=== PATIENT | male | born 1945 | race Caucasian/White ===

== ENCOUNTER 2022-10-21 11:15 | Inpatient (IN) | payer BC, OTHER ==
[2022-10-21] MEDS ORDERED: Fentanyl 100 MCG/2 ML VIAL ONE (11:49)
[2022-10-21 13:08] LABS: #Eosinphils 0.2 thou/uL (0.0-0.7); #Monocytes 1.4 thou/uL (0.11-0.59); #Neutrophils 9.9 thou/uL (1.40-6.50); %Basophils 0.2 % (0.0-1.0); %Eosinophils 1.3 % (0.0-10.0); %Lymphocytes 7.7 % (21.0-51.0); %Monocytes 11.1 % (0.0-10.0); %Neutrophils 79.7 % (42.0-75.0); Hemoglobin 14.6 g/dL (14.0-18.0); Mean Corpuscular HGB CONC 32.1 g/dL (32.0-36.0); Mean Corpuscular Hemoglobin 28.7 pg (27.0-31.0); Mean Corpuscular Volume 89.6 fl (78.0-98.0); Mean Platelet Volume 6.7 fL (7.4-10.4); Platelet Count 429 10x3/uL (130-400); RBC Distribution Width 16.7 % (11.5-14.5); Red Blood Cell (RBC) Count 5.07 mill/uL (4.70-6.10); White Blood Cell (WBC) Count 12.5 10x3/uL (4.8-10.8)
[2022-10-21] MEDS ORDERED: Magnevist 469MG/ML 20 ML VIAL ONE ×2 (13:16)
[2022-10-21 13:20] LABS: INR-International Normal Ratio 1.3; Prothrombin Time 17.1 sec (12.0-14.7)
[2022-10-21] MEDS ORDERED: ALPRAZolam 0.25 MG TAB ONE (13:25)
[2022-10-21] MEDS ORDERED: metroNIDAZOLE 500 MG/100 ML BAG ONE (13:25)
[2022-10-21 13:27] LABS: ALT (SGPT) 61 U/L (8-55); AST (SGOT) 92 U/L (5-34); Albumin 2.9 g/dL (3.4-4.8); Alkaline Phosphatase 101 U/L (40-110); Anion Gap 16 mmol/L (10-20); BUN (Urea Nitrogen) 32 mg/dL (8.4-25.7); Bilirubin, Total 1.3 mg/dL (0.2-1.2); CRP (Inflammatory) 31.39 mg/dL (= or < 0.5); Calc. Creatinine Clearance 0 mL/min (70-130); Calcium 8.7 mg/dL (7.8-10.44); Carbon Dioxide 25 mmol/L (23-31); Chloride 95 mmol/L (98-107); Estimated GFR 57; Globulin 4.2 g/dL (2.4-3.5); Glucose 103 mg/dL (83-110); Potassium 4.3 mmol/L (3.5-5.1); Protein, Total 7.1 g/dL (5.8-8.1); Sodium 132 mmol/L (136-145)
[2022-10-21] MEDS ORDERED: ALPRAZolam 1 MG TAB PO SCH (13:30)
[2022-10-21] MEDS ORDERED: Vancomycin 1.5 GRAM/300 ML BAG 1.5 GM in Premix Bag 1 BAG IVPB SCH (16:00)
[2022-10-21] MEDS ORDERED: Cefepime 2 GM VIAL ONE (16:08)
[2022-10-21 16:21] LABS: Bacteria/HPF None Seen HPF (None Seen); Bilirubin Negative (Negative); Blood, Urine 1+ (Negative); Clarity Clear (Clear); Glucose, Urine (Dipstick) Greater than 1000 mg/dL (Negative); Ketone, Urine Negative (Negative); Leukocyte Negative Leu/uL (Negative); Nitrite Negative (Negative); Protein, Urine (Dipstick) 10 mg/dL (Neg-Trace); Specific Gravity, Urine 1.012 (1.002-1.036); Squamous Epithelial None Seen HPF (0-3); Urobilinogen Normal mg/dL (Less than 2); WBC/HPF 0-3 HPF (0-3)
[2022-10-21] MEDS ORDERED: Senokot S 8.6-50 MG TAB PO PRN (19:07)
[2022-10-21] MEDS ORDERED: HYDROcodone/Acetaminophen 5/325 mg Tablet PO PRN (19:24)
[2022-10-21] MEDS ORDERED: Milk Of Magnesia 30 ML UDCUP PO SCH (19:30)
[2022-10-21] MEDS: tiZANidine HCl 4 MG TAB PO SCH (22:01)
[2022-10-21] MEDS: Atorvastatin Calcium 40 MG TAB PO SCH (22:01)
[2022-10-21] MEDS: Senokot S 8.6-50 MG TAB PO SCH (22:01)
[2022-10-21] MEDS: HYDROcodone/Acetaminophen 5/325 mg Tablet PO SCH (22:02)
[2022-10-21 22:48] VITALS: BMI 27.8
[2022-10-22 01:19] LABS: HIV (1/2) Antibody/Antigen Non-Reactive (NonReactive); HIV 1/2 INDEX 0.08 S/CO (<1.00); Hep C IgG Ab Non-Reactive (NonReactive)
[2022-10-22 01:31] LABS: Hep C Index 0.12 S/CO (0-0.79)
[2022-10-22] MEDS: HYDROcodone/Acetaminophen 5/325 mg Tablet PO SCH ×4 (02:14→20:44)
[2022-10-22] MEDS: HYDROcodone/Acetaminophen 5/325 mg Tablet PO PRN (05:48)
[2022-10-22 06:14] LABS: Hemoglobin 13.3 g/dL (14.0-18.0); Mean Corpuscular HGB CONC 31.2 g/dL (32.0-36.0); Mean Corpuscular Hemoglobin 28.1 pg (27.0-31.0); Mean Platelet Volume 6.9 fL (7.4-10.4); Platelet Count 418 10x3/uL (130-400); RBC Distribution Width 16.7 % (11.5-14.5); Red Blood Cell (RBC) Count 4.72 mill/uL (4.70-6.10); White Blood Cell (WBC) Count 12.7 10x3/uL (4.8-10.8)
[2022-10-22 06:35] LABS: Band 8 % (5-11); Eosinophils 2 % (0-10); Lymphocytes 7 % (21-51); MDiff Complete? YES; Monocytes 15 % (0-10); Neutrophil 68 % (42-75); Target Cells SLIGHT = 2-5 cells (100X) (0-1/hpf)
[2022-10-22 06:37] LABS: Anion Gap 14 mmol/L (10-20); BUN (Urea Nitrogen) 28 mg/dL (8.4-25.7); Calc. Creatinine Clearance 61 mL/min (70-130); Calcium 8.9 mg/dL (7.8-10.44); Carbon Dioxide 28 mmol/L (23-31); Chloride 98 mmol/L (98-107); Estimated GFR 59; Glucose 100 mg/dL (83-110); Potassium 4.4 mmol/L (3.5-5.1); Sodium 136 mmol/L (136-145)
[2022-10-22] MEDS ORDERED: Carvedilol 3.125 MG TAB PO SCH (08:00)
[2022-10-22] MEDS: Carvedilol 3.125 MG TAB PO SCH ×2 (08:49→16:46)
[2022-10-22] MEDS ORDERED: Milk Of Magnesia 30 ML UDCUP PO SCH (09:00)
[2022-10-22] MEDS ORDERED: FLU VACC QS2022-23(65YR UP)/PF 240 MCG/0.7 ML SYRINGE IM ONE (09:00)
[2022-10-22] MEDS: Potassium Chloride 20 MEQ TAB PO SCH (09:02)
[2022-10-22] MEDS: Torsemide 20 MG TAB PO SCH (09:03)
[2022-10-22] MEDS: Senokot S 8.6-50 MG TAB PO SCH ×2 (09:03→20:43)
[2022-10-22] MEDS: Vancomycin 1.5 GRAM/300 ML BAG 1.5 GM in Premix Bag 1 BAG IVPB SCH (09:05)
[2022-10-22] MEDS: Morphine 4 MG/ML VIAL SLOW IVP PRN (11:12)
[2022-10-22] MEDS: tiZANidine HCl 4 MG TAB PO SCH (20:43)
[2022-10-22] MEDS: Atorvastatin Calcium 40 MG TAB PO SCH (20:44)
[2022-10-23] MEDS: HYDROcodone/Acetaminophen 5/325 mg Tablet PO SCH ×2 (02:15→08:06)
[2022-10-23] MEDS: HYDROcodone/Acetaminophen 5/325 mg Tablet PO PRN (05:14)
[2022-10-23] MEDS ORDERED: Polyethylene Glycol 3350 17 GM Packet PO PRN (05:53)
[2022-10-23] MEDS: Carvedilol 3.125 MG TAB PO SCH ×2 (08:38→16:57)
[2022-10-23] MEDS: Empagliflozin 10 MG TAB PO SCH (08:42)
[2022-10-23] MEDS: Potassium Chloride 20 MEQ TAB PO SCH (08:42)
[2022-10-23] MEDS: Senokot S 8.6-50 MG TAB PO SCH ×2 (08:42→20:24)
[2022-10-23] MEDS: Clopidogrel Bisulfate 75 MG TAB PO SCH (08:42)
[2022-10-23] MEDS: Torsemide 20 MG TAB PO SCH (08:42)
[2022-10-23] MEDS: Morphine 4 MG/ML VIAL SLOW IVP PRN (08:53)
[2022-10-23 08:54] LABS: #Eosinphils 0.3 thou/uL (0.0-0.7); #Lymphocytes 1.1 thou/uL (1.20-3.40); #Monocytes 1.2 thou/uL (0.11-0.59); #Neutrophils 6.8 thou/uL (1.40-6.50); %Basophils 0.4 % (0.0-1.0); %Eosinophils 3.3 % (0.0-10.0); %Lymphocytes 11.6 % (21.0-51.0); %Monocytes 12.6 % (0.0-10.0); %Neutrophils 72.1 % (42.0-75.0); Hemoglobin 13.5 g/dL (14.0-18.0); Mean Corpuscular HGB CONC 31.4 g/dL (32.0-36.0); Mean Corpuscular Hemoglobin 28.4 pg (27.0-31.0); Mean Corpuscular Volume 90.3 fl (78.0-98.0); Mean Platelet Volume 6.6 fL (7.4-10.4); Platelet Count 442 10x3/uL (130-400); RBC Distribution Width 16.5 % (11.5-14.5); Red Blood Cell (RBC) Count 4.75 mill/uL (4.70-6.10); White Blood Cell (WBC) Count 9.4 10x3/uL (4.8-10.8)
[2022-10-23 09:09] LABS: Vancomycin, Trough 9.9 ug/mL
[2022-10-23 09:13] LABS: ALT (SGPT) 64 U/L (8-55); AST (SGOT) 76 U/L (5-34); Albumin 2.9 g/dL (3.4-4.8); Alkaline Phosphatase 130 U/L (40-110); Anion Gap 14 mmol/L (10-20); BUN (Urea Nitrogen) 26 mg/dL (8.4-25.7); Bilirubin, Total 1.1 mg/dL (0.2-1.2); CRP (Inflammatory) 28.33 mg/dL (= or < 0.5); Calc. Creatinine Clearance 67 mL/min (70-130); Calcium 8.6 mg/dL (7.8-10.44); Carbon Dioxide 28 mmol/L (23-31); Chloride 93 mmol/L (98-107); Estimated GFR 65; Globulin 3.4 g/dL (2.4-3.5); Glucose 86 mg/dL (83-110); Potassium 4.6 mmol/L (3.5-5.1); Protein, Total 6.3 g/dL (5.8-8.1); Sodium 130 mmol/L (136-145)
[2022-10-23] MEDS: Vancomycin 1.5 GRAM/300 ML BAG 1.5 GM in Premix Bag 1 BAG IVPB SCH (09:59)
[2022-10-23] MEDS ORDERED: VANCOMYCIN 2 GRAM/500 ML BAG 2 GM in Premix Bag 1 BAG IVPB SCH (10:00)
[2022-10-23] MEDS: HYDROcodone/Acetaminophen 7.5/325 mg Tablet PO SCH ×3 (10:42→21:19)
[2022-10-23] MEDS ORDERED: Rifampin 300 MG CAP PO SCH (13:30)
[2022-10-23] MEDS: Oxacillin 2 GM in Sodium Chloride 0.9% 100 ML IVPB SCH ×2 (16:56→20:23)
[2022-10-23] MEDS: Polyvinyl Alcohol 1.4%/Povidone 0.6% Opth Drops EA EYE PRN (17:48)
[2022-10-23] MEDS: Rifampin 300 MG CAP PO SCH (20:24)
[2022-10-23] MEDS: Atorvastatin Calcium 40 MG TAB PO SCH (20:24)
[2022-10-23] MEDS: tiZANidine HCl 4 MG TAB PO SCH (20:24)
[2022-10-23] MEDS: Pregabalin 75 MG CAP PO SCH (20:24)
[2022-10-24] MEDS: Oxacillin 2 GM in Sodium Chloride 0.9% 100 ML IVPB SCH ×6 (00:09→20:03)
[2022-10-24] MEDS: HYDROcodone/Acetaminophen 7.5/325 mg Tablet PO SCH (04:02)
[2022-10-24] MEDS: Polyvinyl Alcohol 1.4%/Povidone 0.6% Opth Drops EA EYE PRN (04:25)
[2022-10-24 08:06] LABS: #Eosinphils 0.3 thou/uL (0.0-0.7); #Neutrophils 6.4 thou/uL (1.40-6.50); %Basophils 0.5 % (0.0-1.0); %Lymphocytes 11.4 % (21.0-51.0); %Monocytes 11.6 % (0.0-10.0); %Neutrophils 72.6 % (42.0-75.0); Mean Corpuscular HGB CONC 31.9 g/dL (32.0-36.0); Mean Corpuscular Hemoglobin 28.8 pg (27.0-31.0); Mean Corpuscular Volume 90.4 fl (78.0-98.0); Mean Platelet Volume 6.6 fL (7.4-10.4); Platelet Count 458 10x3/uL (130-400); RBC Distribution Width 16.6 % (11.5-14.5); Red Blood Cell (RBC) Count 4.84 mill/uL (4.70-6.10); White Blood Cell (WBC) Count 8.8 10x3/uL (4.8-10.8)
[2022-10-24 08:28] LABS: ALT (SGPT) 61 U/L (8-55); AST (SGOT) 69 U/L (5-34); Albumin 2.5 g/dL (3.4-4.8); Alkaline Phosphatase 139 U/L (40-110); Anion Gap 14 mmol/L (10-20); BUN (Urea Nitrogen) 32 mg/dL (8.4-25.7); Bilirubin, Total 1.5 mg/dL (0.2-1.2); Calc. Creatinine Clearance 58 mL/min (70-130); Calcium 9.4 mg/dL (7.8-10.44); Carbon Dioxide 28 mmol/L (23-31); Chloride 93 mmol/L (98-107); Estimated GFR 55; Globulin 4.3 g/dL (2.4-3.5); Glucose 91 mg/dL (83-110); Potassium 4.4 mmol/L (3.5-5.1); Protein, Total 6.8 g/dL (5.8-8.1); Sodium 131 mmol/L (136-145)
[2022-10-24] MEDS ORDERED: Morphine 4 MG/ML VIAL SLOW IVP PRN (08:45)
[2022-10-24] MEDS: Morphine 2 MG/ML VIAL SLOW IVP PRN ×2 (09:04→15:24)
[2022-10-24] MEDS: Senokot S 8.6-50 MG TAB PO SCH ×2 (09:08→20:04)
[2022-10-24] MEDS: Rifampin 300 MG CAP PO SCH ×2 (09:08→20:04)
[2022-10-24] MEDS: Torsemide 20 MG TAB PO SCH (09:08)
[2022-10-24] MEDS: Potassium Chloride 20 MEQ TAB PO SCH (09:08)
[2022-10-24] MEDS: Carvedilol 3.125 MG TAB PO SCH ×3 (09:09→18:04)
[2022-10-24] MEDS: Clopidogrel Bisulfate 75 MG TAB PO SCH (09:09)
[2022-10-24] MEDS: HYDROcodone/Acetaminophen 10/325 mg Tablet PO SCH ×3 (09:09→21:39)
[2022-10-24] MEDS: Empagliflozin 10 MG TAB PO SCH (09:10)
[2022-10-24 11:21] LABS: HBSAg Index 0.24 S/CO (0-0.99); Hep B Surf Ag Non-Reactive S/CO (NonReactive)
[2022-10-24 11:22] LABS: Hep A IgM AB Non-Reactive (NonReactive); Hep A IgM S/CO 0.21 S/CO (0-0.79)
[2022-10-24 11:23] LABS: HBCM Index 0.07 S/CO (0-0.79); Hepatitis B Core IgM Abs Non-Reactive (NonReactive)
[2022-10-24 16:26] LABS: Hep C IgG Ab Non-Reactive (NonReactive); Hep C Index 0.11 S/CO (0-0.79)
[2022-10-24] MEDS: Atorvastatin Calcium 40 MG TAB PO SCH (20:04)
[2022-10-24] MEDS: Pregabalin 75 MG CAP PO SCH (20:04)
[2022-10-24] MEDS: tiZANidine HCl 4 MG TAB PO SCH (20:05)
[2022-10-24] MEDS ORDERED: Calcium Carbonate 500 MG ChewTAB PO SCH (22:00)
[2022-10-25] MEDS: Oxacillin 2 GM in Sodium Chloride 0.9% 100 ML IVPB SCH ×6 (00:39→20:11)
[2022-10-25] MEDS: HYDROcodone/Acetaminophen 10/325 mg Tablet PO SCH ×4 (04:51→22:18)
[2022-10-25 07:13] LABS: #Eosinphils 0.3 thou/uL (0.0-0.7); #Lymphocytes 0.7 thou/uL (1.20-3.40); #Neutrophils 5.7 thou/uL (1.40-6.50); %Basophils 0.1 % (0.0-1.0); %Lymphocytes 9.1 % (21.0-51.0); %Monocytes 13.5 % (0.0-10.0); %Neutrophils 73.3 % (42.0-75.0); Hemoglobin 14.1 g/dL (14.0-18.0); Mean Corpuscular HGB CONC 30.8 g/dL (32.0-36.0); Mean Corpuscular Hemoglobin 27.4 pg (27.0-31.0); Mean Corpuscular Volume 88.9 fl (78.0-98.0); Mean Platelet Volume 7.2 fL (7.4-10.4); Platelet Count 374 10x3/uL (130-400); RBC Distribution Width 16.9 % (11.5-14.5); Red Blood Cell (RBC) Count 5.17 mill/uL (4.70-6.10); White Blood Cell (WBC) Count 7.7 10x3/uL (4.8-10.8)
[2022-10-25 07:39] LABS: ALT (SGPT) 44 U/L (8-55); AST (SGOT) 51 U/L (5-34); Albumin 2.5 g/dL (3.4-4.8); Alkaline Phosphatase 117 U/L (40-110); Anion Gap 14 mmol/L (10-20); BUN (Urea Nitrogen) 33 mg/dL (8.4-25.7); Bilirubin, Total 1.4 mg/dL (0.2-1.2); Calc. Creatinine Clearance 62 mL/min (70-130); Calcium 9.4 mg/dL (7.8-10.44); Carbon Dioxide 26 mmol/L (23-31); Chloride 95 mmol/L (98-107); Estimated GFR 59; Globulin 3.9 g/dL (2.4-3.5); Glucose 91 mg/dL (83-110); Potassium 4.2 mmol/L (3.5-5.1); Protein, Total 6.4 g/dL (5.8-8.1); Sodium 131 mmol/L (136-145)
[2022-10-25] MEDS: Senokot S 8.6-50 MG TAB PO SCH ×2 (08:03→20:10)
[2022-10-25] MEDS: Carvedilol 3.125 MG TAB PO SCH ×2 (08:03→16:54)
[2022-10-25] MEDS: Clopidogrel Bisulfate 75 MG TAB PO SCH (08:03)
[2022-10-25] MEDS: Potassium Chloride 20 MEQ TAB PO SCH (08:03)
[2022-10-25] MEDS: Rifampin 300 MG CAP PO SCH ×2 (08:03→20:09)
[2022-10-25] MEDS: Torsemide 20 MG TAB PO SCH (08:04)
[2022-10-25] MEDS: Empagliflozin 10 MG TAB PO SCH (08:04)
[2022-10-25] MEDS: Morphine 2 MG/ML VIAL SLOW IVP PRN (08:47)
[2022-10-25] MEDS ORDERED: Polyethylene Glycol 3350 17 GM Packet PO SCH (09:00)
[2022-10-25] MEDS ORDERED: Calcium Carbonate 500 MG ChewTAB PO PRN (09:30)
[2022-10-25] MEDS ORDERED: Milk Of Magnesia 30 ML UDCUP PO PRN (10:47)
[2022-10-25] MEDS ORDERED: Magnesium Citrate 300 ML BOT PO PRN (15:51)
[2022-10-25] MEDS: Atorvastatin Calcium 40 MG TAB PO SCH (20:10)
[2022-10-25] MEDS: Pregabalin 75 MG CAP PO SCH (20:10)
[2022-10-25] MEDS: tiZANidine HCl 4 MG TAB PO SCH (20:10)
[2022-10-25] MEDS: Polyethylene Glycol 3350 17 GM Packet PO SCH (20:11)
[2022-10-26] MEDS: Oxacillin 2 GM in Sodium Chloride 0.9% 100 ML IVPB SCH ×6 (00:24→20:41)
[2022-10-26] MEDS: HYDROcodone/Acetaminophen 10/325 mg Tablet PO SCH ×4 (03:59→21:32)
[2022-10-26 06:46] LABS: #Basophils 0.1 thou/uL (0.0-0.2); #Eosinphils 0.4 thou/uL (0.0-0.7); #Lymphocytes 1.4 thou/uL (1.20-3.40); #Monocytes 1.2 thou/uL (0.11-0.59); #Neutrophils 7.7 thou/uL (1.40-6.50); %Basophils 0.5 % (0.0-1.0); %Eosinophils 4.1 % (0.0-10.0); %Lymphocytes 12.7 % (21.0-51.0); %Monocytes 11.1 % (0.0-10.0); %Neutrophils 71.6 % (42.0-75.0); Hemoglobin 14.1 g/dL (14.0-18.0); Mean Corpuscular HGB CONC 31.7 g/dL (32.0-36.0); Mean Corpuscular Hemoglobin 28.3 pg (27.0-31.0); Mean Corpuscular Volume 89.3 fl (78.0-98.0); Mean Platelet Volume 6.9 fL (7.4-10.4); Platelet Count 474 10x3/uL (130-400); RBC Distribution Width 17.1 % (11.5-14.5); Red Blood Cell (RBC) Count 4.98 mill/uL (4.70-6.10); White Blood Cell (WBC) Count 10.7 10x3/uL (4.8-10.8)
[2022-10-26 07:03] LABS: ALT (SGPT) 42 U/L (8-55); AST (SGOT) 53 U/L (5-34); Albumin 2.3 g/dL (3.4-4.8); Alkaline Phosphatase 129 U/L (40-110); Anion Gap 12 mmol/L (10-20); BUN (Urea Nitrogen) 35 mg/dL (8.4-25.7); Bilirubin, Total 1.3 mg/dL (0.2-1.2); Calc. Creatinine Clearance 63 mL/min (70-130); Calcium 9.8 mg/dL (7.8-10.44); Carbon Dioxide 29 mmol/L (23-31); Chloride 96 mmol/L (98-107); Estimated GFR 61; Globulin 4.2 g/dL (2.4-3.5); Glucose 91 mg/dL (83-110); Potassium 4.5 mmol/L (3.5-5.1); Protein, Total 6.5 g/dL (5.8-8.1); Sodium 132 mmol/L (136-145)
[2022-10-26] MEDS: Carvedilol 3.125 MG TAB PO SCH ×2 (08:07→17:24)
[2022-10-26] MEDS: Polyethylene Glycol 3350 17 GM Packet PO SCH ×2 (08:07→20:41)
[2022-10-26] MEDS: Rifampin 300 MG CAP PO SCH ×2 (08:07→20:46)
[2022-10-26] MEDS: Torsemide 20 MG TAB PO SCH (08:07)
[2022-10-26] MEDS: Potassium Chloride 20 MEQ TAB PO SCH (08:07)
[2022-10-26] MEDS: Senokot S 8.6-50 MG TAB PO SCH ×2 (08:08→20:42)
[2022-10-26] MEDS: Clopidogrel Bisulfate 75 MG TAB PO SCH (08:08)
[2022-10-26] MEDS: Empagliflozin 10 MG TAB PO SCH (08:08)
[2022-10-26] MEDS: Atorvastatin Calcium 40 MG TAB PO SCH (20:40)
[2022-10-26] MEDS: Pregabalin 75 MG CAP PO SCH (20:40)
[2022-10-26] MEDS: tiZANidine HCl 4 MG TAB PO SCH (20:40)
[2022-10-27] MEDS: Oxacillin 2 GM in Sodium Chloride 0.9% 100 ML IVPB SCH ×6 (00:43→19:51)
[2022-10-27] MEDS: HYDROcodone/Acetaminophen 10/325 mg Tablet PO SCH ×4 (03:33→21:36)
[2022-10-27 06:58] LABS: #Basophils 0.1 thou/uL (0.0-0.2); #Eosinphils 0.4 thou/uL (0.0-0.7); #Lymphocytes 1.4 thou/uL (1.20-3.40); #Monocytes 1.3 thou/uL (0.11-0.59); #Neutrophils 6.2 thou/uL (1.40-6.50); %Basophils 0.6 % (0.0-1.0); %Eosinophils 3.9 % (0.0-10.0); %Lymphocytes 15.2 % (21.0-51.0); %Monocytes 13.4 % (0.0-10.0); %Neutrophils 66.8 % (42.0-75.0); Hemoglobin 14.9 g/dL (14.0-18.0); Mean Corpuscular Hemoglobin 28.1 pg (27.0-31.0); Mean Corpuscular Volume 90.7 fl (78.0-98.0); Mean Platelet Volume 7.1 fL (7.4-10.4); Platelet Count 473 10x3/uL (130-400); RBC Distribution Width 17.3 % (11.5-14.5); Red Blood Cell (RBC) Count 5.31 mill/uL (4.70-6.10); White Blood Cell (WBC) Count 9.3 10x3/uL (4.8-10.8)
[2022-10-27 07:21] LABS: ALT (SGPT) 40 U/L (8-55); AST (SGOT) 50 U/L (5-34); Albumin 2.4 g/dL (3.4-4.8); Alkaline Phosphatase 116 U/L (40-110); Anion Gap 13 mmol/L (10-20); BUN (Urea Nitrogen) 31 mg/dL (8.4-25.7); Calc. Creatinine Clearance 72 mL/min (70-130); Calcium 9.4 mg/dL (7.8-10.44); Carbon Dioxide 26 mmol/L (23-31); Chloride 99 mmol/L (98-107); Estimated GFR 71; Globulin 4.1 g/dL (2.4-3.5); Glucose 89 mg/dL (83-110); Potassium 4.6 mmol/L (3.5-5.1); Protein, Total 6.5 g/dL (5.8-8.1); Sodium 133 mmol/L (136-145)
[2022-10-27] MEDS: Clopidogrel Bisulfate 75 MG TAB PO SCH (09:41)
[2022-10-27] MEDS: Carvedilol 3.125 MG TAB PO SCH ×2 (09:41→16:16)
[2022-10-27] MEDS: Polyethylene Glycol 3350 17 GM Packet PO SCH ×2 (09:41→19:51)
[2022-10-27] MEDS: Empagliflozin 10 MG TAB PO SCH (09:43)
[2022-10-27] MEDS: Rifampin 300 MG CAP PO SCH ×2 (09:44→19:51)
[2022-10-27] MEDS: Potassium Chloride 20 MEQ TAB PO SCH (09:44)
[2022-10-27] MEDS: Torsemide 20 MG TAB PO SCH (09:44)
[2022-10-27] MEDS: Senokot S 8.6-50 MG TAB PO SCH ×2 (09:46→19:51)
[2022-10-27] MEDS: Atorvastatin Calcium 40 MG TAB PO SCH (19:50)
[2022-10-27] MEDS: Pregabalin 75 MG CAP PO SCH (19:50)
[2022-10-27] MEDS: tiZANidine HCl 4 MG TAB PO SCH (19:51)
[2022-10-28] MEDS: HYDROcodone/Acetaminophen 5/325 mg Tablet PO PRN (00:49)
[2022-10-28] MEDS: Oxacillin 2 GM in Sodium Chloride 0.9% 100 ML IVPB SCH ×6 (00:56→20:32)
[2022-10-28] MEDS: HYDROcodone/Acetaminophen 10/325 mg Tablet PO SCH ×4 (04:11→21:22)
[2022-10-28 06:56] LABS: #Basophils 0.1 thou/uL (0.0-0.2); #Eosinphils 0.6 thou/uL (0.0-0.7); #Lymphocytes 1.4 thou/uL (1.20-3.40); #Monocytes 1.2 thou/uL (0.11-0.59); #Neutrophils 5.6 thou/uL (1.40-6.50); %Basophils 0.7 % (0.0-1.0); %Eosinophils 6.9 % (0.0-10.0); %Lymphocytes 15.8 % (21.0-51.0); %Monocytes 13.4 % (0.0-10.0); %Neutrophils 63.2 % (42.0-75.0); Hemoglobin 14.6 g/dL (14.0-18.0); Mean Corpuscular HGB CONC 31.5 g/dL (32.0-36.0); Mean Corpuscular Volume 88.9 fl (78.0-98.0); Mean Platelet Volume 6.7 fL (7.4-10.4); Platelet Count 553 10x3/uL (130-400); RBC Distribution Width 17.7 % (11.5-14.5); Red Blood Cell (RBC) Count 5.23 mill/uL (4.70-6.10); White Blood Cell (WBC) Count 8.9 10x3/uL (4.8-10.8)
[2022-10-28 07:20] LABS: ALT (SGPT) 45 U/L (8-55); AST (SGOT) 57 U/L (5-34); Albumin 2.2 g/dL (3.4-4.8); Alkaline Phosphatase 120 U/L (40-110); Anion Gap 14 mmol/L (10-20); BUN (Urea Nitrogen) 31 mg/dL (8.4-25.7); Bilirubin, Total 0.9 mg/dL (0.2-1.2); Calc. Creatinine Clearance 69 mL/min (70-130); Calcium 9.6 mg/dL (7.8-10.44); Carbon Dioxide 27 mmol/L (23-31); Chloride 99 mmol/L (98-107); Estimated GFR 68; Globulin 4.3 g/dL (2.4-3.5); Glucose 90 mg/dL (83-110); Potassium 4.5 mmol/L (3.5-5.1); Protein, Total 6.5 g/dL (5.8-8.1); Sodium 135 mmol/L (136-145)
[2022-10-28] MEDS: Clopidogrel Bisulfate 75 MG TAB PO SCH (08:51)
[2022-10-28] MEDS: Polyethylene Glycol 3350 17 GM Packet PO SCH ×2 (08:51→20:34)
[2022-10-28] MEDS: Potassium Chloride 20 MEQ TAB PO SCH (08:52)
[2022-10-28] MEDS: Rifampin 300 MG CAP PO SCH ×2 (08:52→20:33)
[2022-10-28] MEDS: Senokot S 8.6-50 MG TAB PO SCH ×2 (08:52→20:34)
[2022-10-28] MEDS: Carvedilol 3.125 MG TAB PO SCH ×2 (08:52→17:46)
[2022-10-28] MEDS: Empagliflozin 10 MG TAB PO SCH (08:52)
[2022-10-28] MEDS: Torsemide 20 MG TAB PO SCH (08:52)
[2022-10-28] MEDS: Morphine 2 MG/ML VIAL SLOW IVP PRN (10:40)
[2022-10-28] MEDS: Atorvastatin Calcium 40 MG TAB PO SCH (20:33)
[2022-10-28] MEDS: tiZANidine HCl 4 MG TAB PO SCH (20:34)
[2022-10-28] MEDS: Pregabalin 75 MG CAP PO SCH (20:34)
[2022-10-29] MEDS: Oxacillin 2 GM in Sodium Chloride 0.9% 100 ML IVPB SCH ×6 (00:51→20:40)
[2022-10-29] MEDS: HYDROcodone/Acetaminophen 10/325 mg Tablet PO SCH ×2 (05:13→11:11)
[2022-10-29 07:51] LABS: #Eosinphils 0.5 thou/uL (0.0-0.7); #Lymphocytes 1.4 thou/uL (1.20-3.40); #Monocytes 1.2 thou/uL (0.11-0.59); #Neutrophils 6.1 thou/uL (1.40-6.50); %Basophils 0.5 % (0.0-1.0); %Eosinophils 5.3 % (0.0-10.0); %Lymphocytes 15.4 % (21.0-51.0); %Monocytes 12.7 % (0.0-10.0); %Neutrophils 66.1 % (42.0-75.0); Hemoglobin 14.2 g/dL (14.0-18.0); Mean Corpuscular HGB CONC 31.1 g/dL (32.0-36.0); Mean Corpuscular Hemoglobin 27.6 pg (27.0-31.0); Mean Corpuscular Volume 88.7 fl (78.0-98.0); Mean Platelet Volume 6.7 fL (7.4-10.4); Platelet Count 541 10x3/uL (130-400); RBC Distribution Width 17.6 % (11.5-14.5); Red Blood Cell (RBC) Count 5.15 mill/uL (4.70-6.10); White Blood Cell (WBC) Count 9.3 10x3/uL (4.8-10.8)
[2022-10-29 07:57] LABS: ALT (SGPT) 53 U/L (8-55); AST (SGOT) 70 U/L (5-34); Albumin 2.4 g/dL (3.4-4.8); Alkaline Phosphatase 124 U/L (40-110); Anion Gap 13 mmol/L (10-20); BUN (Urea Nitrogen) 28 mg/dL (8.4-25.7); Bilirubin, Total 0.9 mg/dL (0.2-1.2); Calc. Creatinine Clearance 70 mL/min (70-130); Calcium 9.2 mg/dL (7.8-10.44); Carbon Dioxide 26 mmol/L (23-31); Chloride 99 mmol/L (98-107); Estimated GFR 68; Globulin 4.2 g/dL (2.4-3.5); Glucose 85 mg/dL (83-110); Potassium 4.5 mmol/L (3.5-5.1); Protein, Total 6.6 g/dL (5.8-8.1); Sodium 133 mmol/L (136-145)
[2022-10-29] MEDS: Polyethylene Glycol 3350 17 GM Packet PO SCH ×2 (08:44→20:40)
[2022-10-29] MEDS: Senokot S 8.6-50 MG TAB PO SCH ×2 (08:44→20:40)
[2022-10-29] MEDS: Rifampin 300 MG CAP PO SCH ×2 (08:44→20:41)
[2022-10-29] MEDS: Potassium Chloride 20 MEQ TAB PO SCH (08:44)
[2022-10-29] MEDS: Clopidogrel Bisulfate 75 MG TAB PO SCH (08:45)
[2022-10-29] MEDS: Torsemide 20 MG TAB PO SCH (08:45)
[2022-10-29] MEDS: Empagliflozin 10 MG TAB PO SCH (08:45)
[2022-10-29] MEDS: Carvedilol 3.125 MG TAB PO SCH ×2 (08:45→17:45)
[2022-10-29] MEDS ORDERED: Ondansetron PF 4 MG/2 ML Vial IVP PRN (17:39)
[2022-10-29] MEDS: Atorvastatin Calcium 40 MG TAB PO SCH (20:40)
[2022-10-29] MEDS: Pregabalin 75 MG CAP PO SCH (20:41)
[2022-10-29] MEDS: tiZANidine HCl 4 MG TAB PO SCH (20:41)
[2022-10-29] MEDS: HYDROcodone/Acetaminophen 10/325 mg Tablet PO PRN (20:44)
[2022-10-30] MEDS: Oxacillin 2 GM in Sodium Chloride 0.9% 100 ML IVPB SCH ×6 (00:16→20:52)
[2022-10-30] MEDS: Polyethylene Glycol 3350 17 GM Packet PO SCH ×2 (09:39→21:16)
[2022-10-30] MEDS: Potassium Chloride 20 MEQ TAB PO SCH (09:39)
[2022-10-30] MEDS: Empagliflozin 10 MG TAB PO SCH (09:40)
[2022-10-30] MEDS: Senokot S 8.6-50 MG TAB PO SCH ×2 (09:40→21:17)
[2022-10-30] MEDS: Carvedilol 3.125 MG TAB PO SCH ×2 (09:40→17:14)
[2022-10-30] MEDS: Torsemide 20 MG TAB PO SCH (09:40)
[2022-10-30] MEDS: Clopidogrel Bisulfate 75 MG TAB PO SCH (09:40)
[2022-10-30] MEDS: Rifampin 300 MG CAP PO SCH ×2 (09:40→20:52)
[2022-10-30] MEDS: HYDROcodone/Acetaminophen 10/325 mg Tablet PO PRN ×2 (12:53→20:53)
[2022-10-30] MEDS: Morphine 2 MG/ML VIAL SLOW IVP PRN (13:18)
[2022-10-30] MEDS: Atorvastatin Calcium 40 MG TAB PO SCH (20:52)
[2022-10-30] MEDS: tiZANidine HCl 4 MG TAB PO SCH (20:52)
[2022-10-30] MEDS: Pregabalin 75 MG CAP PO SCH (20:53)
[2022-10-31] MEDS: Oxacillin 2 GM in Sodium Chloride 0.9% 100 ML IVPB SCH ×6 (00:44→21:14)
[2022-10-31] MEDS: HYDROcodone/Acetaminophen 10/325 mg Tablet PO PRN ×2 (02:42→16:55)
[2022-10-31] MEDS: Senokot S 8.6-50 MG TAB PO SCH ×2 (08:59→21:14)
[2022-10-31] MEDS: Rifampin 300 MG CAP PO SCH ×2 (08:59→21:14)
[2022-10-31] MEDS: Potassium Chloride 20 MEQ TAB PO SCH (08:59)
[2022-10-31] MEDS: Polyethylene Glycol 3350 17 GM Packet PO SCH ×2 (09:00→21:14)
[2022-10-31] MEDS: Torsemide 20 MG TAB PO SCH (09:00)
[2022-10-31] MEDS: Clopidogrel Bisulfate 75 MG TAB PO SCH (09:00)
[2022-10-31] MEDS: Carvedilol 3.125 MG TAB PO SCH ×2 (09:00→16:56)
[2022-10-31] MEDS: Empagliflozin 10 MG TAB PO SCH (09:00)
[2022-10-31] MEDS: Atorvastatin Calcium 40 MG TAB PO SCH (21:13)
[2022-10-31] MEDS: tiZANidine HCl 4 MG TAB PO SCH (21:13)
[2022-10-31] MEDS: Pregabalin 75 MG CAP PO SCH (21:13)
[2022-11-01] MEDS: Oxacillin 2 GM in Sodium Chloride 0.9% 100 ML IVPB SCH ×6 (00:34→21:45)
[2022-11-01] MEDS: Potassium Chloride 20 MEQ TAB PO SCH (08:23)
[2022-11-01] MEDS: Senokot S 8.6-50 MG TAB PO SCH ×2 (08:23→21:46)
[2022-11-01] MEDS: Polyethylene Glycol 3350 17 GM Packet PO SCH ×2 (08:23→21:46)
[2022-11-01] MEDS: Carvedilol 3.125 MG TAB PO SCH ×2 (08:23→16:52)
[2022-11-01] MEDS: Rifampin 300 MG CAP PO SCH ×2 (08:23→21:45)
[2022-11-01] MEDS: Empagliflozin 10 MG TAB PO SCH (08:24)
[2022-11-01] MEDS: Torsemide 20 MG TAB PO SCH (08:24)
[2022-11-01] MEDS: Clopidogrel Bisulfate 75 MG TAB PO SCH (08:24)
[2022-11-01] MEDS: Atorvastatin Calcium 40 MG TAB PO SCH (21:45)
[2022-11-01] MEDS: tiZANidine HCl 4 MG TAB PO SCH (21:45)
[2022-11-01] MEDS: HYDROcodone/Acetaminophen 10/325 mg Tablet PO PRN (21:46)
[2022-11-01] MEDS: Pregabalin 75 MG CAP PO SCH (21:46)
[2022-11-01 21:50] VITALS: BP 130/82; TEMP 97.7
== END 2022-11-01 22:16 | DRG 872 ==
LOC: ERS 11:15 → T4-B 17:13 → OBSVTOIN 17:13
PROVIDERS: ADMIT Family Medicine; ATTEND Family Medicine
PROC: 3E03329 Introduction of Other Anti-infective into Peripheral Vein, Percutaneous Approach (ICD-10-PCS; principal; 2022-10-21)
PROC: 02HV33Z Insertion of Infusion Device into Superior Vena Cava, Percutaneous Approach (ICD-10-PCS; 2022-10-28)
PROC: B5181ZA Fluoroscopy of Superior Vena Cava using Low Osmolar Contrast, Guidance (ICD-10-PCS; 2022-10-28)
PROC: B548ZZA Ultrasonography of Superior Vena Cava, Guidance (ICD-10-PCS; 2022-10-28)
PROC: 3E04329 Introduction of Other Anti-infective into Central Vein, Percutaneous Approach (ICD-10-PCS; 2022-10-28)
DX: A41.01 Sepsis due to Methicillin susceptible Staphylococcus aureus (principal); L02.212 Cutaneous abscess of back [any part, except buttock and flank]; I13.0 Hypertensive heart and chronic kidney disease with heart failure and stage 1 through stage 4 chronic kidney disease, or unspecified chronic kidney disease; I50.22 Chronic systolic (congestive) heart failure; E87.1 Hypo-osmolality and hyponatremia; I25.110 Atherosclerotic heart disease of native coronary artery with unstable angina pectoris; Z20.822 Contact with and (suspected) exposure to COVID-19; R74.01 Elevation of levels of liver transaminase levels; N18.2 Chronic kidney disease, stage 2 (mild); B18.2 Chronic viral hepatitis C; R33.9 Retention of urine, unspecified; G89.29 Other chronic pain; I25.10 Atherosclerotic heart disease of native coronary artery without angina pectoris; I35.2 Nonrheumatic aortic (valve) stenosis with insufficiency; Z28.21 Immunization not carried out because of patient refusal; Z95.1 Presence of aortocoronary bypass graft; Z98.1 Arthrodesis status; Z88.5 Allergy status to narcotic agent; Z88.8 Allergy status to other drugs, medicaments and biological substances; Z79.899 Other long term (current) drug therapy; Z79.82 Long term (current) use of aspirin; Z79.02 Long term (current) use of antithrombotics/antiplatelets; Z98.890 Other specified postprocedural states; Z87.891 Personal history of nicotine dependence; Z95.5 Presence of coronary angioplasty implant and graft
CPT/HCPCS: 36415; 36569; 51702; 72157; 72158; 80048; 80053; 80074; 80202; 80307; 81003; 81015; 83605; 85025; 85610; 85652; 85730; 86140; 86803; 86850; 86900; 86901; 87040; 87077; 87086; 87149; 87186; 87389; 87811; 93005; 93306; 96361; 96365; 96366; 96367; 96375; 97139; A9579; C1751; J0692; J1650; J2270; J2272; J2405; J2700; J3010; J3370; J3490; U0003; U0005

== ENCOUNTER → 2022-12-03 | Day surgery (SDC) | payer OTHER | END | disposition home or self-care (01) | LOC: SPEC 10:46 | PROVIDERS: ATTEND Family Medicine | PROC: 02HV33Z Insertion of Infusion Device into Superior Vena Cava, Percutaneous Approach (ICD-10-PCS; principal; 2022-12-03) | DX: A49.01 Methicillin susceptible Staphylococcus aureus infection, unspecified site (principal); L02.212 Cutaneous abscess of back [any part, except buttock and flank]; M54.50 Low back pain, unspecified; I10 Essential (primary) hypertension; I25.10 Atherosclerotic heart disease of native coronary artery without angina pectoris; I25.709 Atherosclerosis of coronary artery bypass graft(s), unspecified, with unspecified angina pectoris; Z88.5 Allergy status to narcotic agent; Z88.8 Allergy status to other drugs, medicaments and biological substances | CPT/HCPCS: 36584; C1751 ==